=== PATIENT | male | born 1985 | race Caucasian/White ===

== ENCOUNTER 2020-06-30 17:45 | Emergency (ER) | payer OTHER ==
[2020-06-30] MEDS ORDERED: TRUVADA 200 MG1 EACH PO (19:21)
[2020-06-30] MEDS ORDERED: ISENTRESS400 MG PO (19:21)
[2020-07-02 08:09] LABS: HBSAG SCREEN Negative (Negative); HEP A AB, IGM Negative (Negative); HEP B CORE AB, IGM Negative (Negative); HEP C VIRUS AB <0.1 (0.0-0.9); HIV SCREEN 4TH GENERATION WRFX Non Reactive (Non Reactive)
== END 2020-06-30 19:35 | disposition home or self-care (01) ==
LOC: FER 17:45
PROVIDERS: Nurse Practitioner Family
DX: S61.032A Puncture wound without foreign body of left thumb without damage to nail, initial encounter (principal); W46.1XXA Contact with contaminated hypodermic needle, initial encounter
CPT/HCPCS: 80074; 87389; 99283